=== PATIENT | female | born 1955 | race Caucasian/White ===

== ENCOUNTER 2019-01-27 08:25 | Inpatient (IN) | payer BC ==
[2019-01-27 08:51] VITALS: BMI 19.5
--- NOTE | 2019-01-27 09:48 | HP ---
"CIWA Score Nausea/Vomitin-Int. Nausea w/Dry Heave Muscle Tremors: 4-Moderate,w/Arms Extend Anxiety: 4-Mod. Anxious/Guarded Agitation: 4-Moderately Restless Paroxysmal Sweats: 1-Minimal Palms Moist Orientation: 3-Disoriented Date>2 days Tacttile Disturbances: 0-None Auditory Disturbances: 2-Mild Harshness/Frighten Visual Disturbances: 3-Moderate Sensitivity Headache: 3-Moderate CIWA-Ar Total Score: 28 - Admission Criteria OASAS Guidelines: Admission for Medically Managed Detox: Requires at least one of the followin. CIWA greater than 12 2. Seizures within the past 24 hours 3. Delirium tremens within the past 24 hours 4. Hallucinations within the past 24 hours 5. Acute intervention needed for co occurring medical disorder 6. Acute intervention needed for co occurring psychiatric disorder 7. Severe withdrawal that cannot be handled at a lower level of care (continued vomiting, continued diarrhea, abnormal vital signs) requiring intravenous medication and/or fluids 8. Admission ROS [facility] Allergies/Adverse Reactions: Allergies Allergy/AdvReac Type Severity Reaction Status Date / Time No Known Allergies Allergy Verified 01/27/19 08:44 History of Present Illness: pt here requesting detox from etoh use , reports 1.5 l vodka/day , progressively increased since 5 years ago , latest use Wednesday . denies seizures or blackouts, + tremors pmhx : htn , C-sx x 2 This report was requested by: Hallie Paul | Reference #: [id number] Others' Prescriptions Patient Name: Cindy Marte Date: 1955 Address: [address] [place] [address] Sex: Female Rx Written Rx Dispensed Drug Quantity Days Supply Prescriber Name 11/21/2018 11/21/2018 alprazolam 0.5 mg tablet 30 30 Michael De Dios MD 11/21/2018 11/21/2018 zolpidem tartrate 10 mg tablet 30 30 Michael De Dios MD 04/26/2018 09/02/2018 zolpidem tartrate 10 mg tablet 30 30 Michael De Dios MD 04/26/2018 06/19/2018 zolpidem tartrate 10 mg tablet 30 30 Michael De Dios MD 04/26/2018 04/27/2018 alprazolam 0.5 mg tablet 30 30 Michael De Dios MD 04/26/2018 04/27/2018 zolpidem tartrate 10 mg tablet 30 30 Michael De Dios MD 10/06/2017 03/16/2018 zolpidem tartrate 10 mg tablet 30 30 Michael De Dios MD Exam Limitations: Clinical Condition - Ebola screening Have you traveled outside of the country in the last 21 days: No Have you had contact with anyone from an Ebola affected area: No Do you have a fever: No - Review of Systems Constitutional: Loss of Appetite EENT: reports: No Symptoms Reported Respiratory: reports: No Symptoms reported Cardiac: reports: No Symptoms Reported GI: reports: See HPI : reports: No Symptoms Reported Musculoskeletal: reports: No Symptoms Reported Integumentary: reports: No Symptoms Reported Neuro: reports: See HPI, Headache Endocrine: reports: No Symptoms Reported Psychiatric: reports: Agitated, Anxious, Disorientated Patient History - Smoking Cessation Smoking history: Never smoked - Substances abused Alcohol Substance route: Oral Frequency: Daily Amount used: 1 1/2 liter of vodka Age of first use: 22 Date of last use: 01/25/19 Admission Physical Exam [facility] - Vital Signs Vital Signs: Vital Signs - 24 hr 01/27/19 08:30 Temperature 97.7 F Pulse Rate 71 Respiratory 18 Rate Blood Pressure 154/90 - Physical General Appearance: Yes: Moderate Distress, Tremorous, Anxious HEENTM: Yes: EOMI, Hearing grossly Normal, Normocephalic, Normal Voice Respiratory: Yes: Chest Non-Tender, Lungs Clear, Normal Breath Sounds, No Respiratory Distress, No Accessory Muscle Use Neck: Yes: No masses,lesions,Nodules, Trachea in good position Cardiology: Yes: Regular Rhythm, Regular Rate, S1, S2, Tachycardia Abdominal: Yes: Non Tender, Soft Musculoskeletal: Yes: Gait Steady Extremities: Yes: Normal Range of Motion, Non-Tender, Tremors Neurological: Yes: Alert, Motor Strength 5/5 Integumentary: Yes: Warm - Diagnostic (1) Alcohol withdrawal Current Visit: Yes Status: Acute Qualifiers: Complication of substance-induced condition: uncomplicated Qualified Code(s ): F10.230 - Alcohol dependence with withdrawal, uncomplicated Breathalyzer - Breathalyzer Breathalyzer: 0 Urine Drug Screen - Test Device Lot number: [id number] Expiration date: 10/12/20 - Control Is test valid?: Yes - Results Drug screen NEGATIVE: No Urine drug screen results: THC-Marijuana, BZO-Benzodiazepines Inpatient Rehab Admission - Rehab Decision to Admit Inpatient rehab admission?: No"
[2019-01-27] MEDS ORDERED: MAG HYDROX/AL HYDROX/SIMETH 30 ML UNIT-DOSE CUP PO PRN (10:18)
[2019-01-27] MEDS ORDERED: hydrOXYzine PAMOATE 25 MG CAPSULE (FP) PO PRN (10:18)
[2019-01-27] MEDS ORDERED: MAGNESIUM HYDROX 2400MG/30ML ORAL SUSPENSION 30 ML CUP PO PRN (10:18)
[2019-01-27] MEDS ORDERED: ACETAMINOPHEN 325 MG TABLET (FP) PO PRN ×2 (10:18)
[2019-01-27] MEDS ORDERED: BISMUTH SUBSALICYLATE 524 MG/30 ML UD PO PRN (10:18)
[2019-01-27] MEDS ORDERED: IBUPROFEN 400 MG TABLET (FP) PO PRN (10:18)
[2019-01-27] MEDS ORDERED: MAGNESIUM CITRATE 300 ML BOTTLE PO PRN (10:18)
[2019-01-27] MEDS ORDERED: MENTHOL/PHENOL 1 EACH UD MM PRN (10:18)
[2019-01-27] MEDS ORDERED: chlordiazePOXIDE HCL 25 MG CAPSULE PO PRN (10:20)
[2019-01-27] MEDS: chlordiazePOXIDE HCL 25 MG CAPSULE PO SCH ×3 (11:18→22:10)
[2019-01-27] MEDS: THIAMINE HCL 100 MG TABLET (FP) PO SCH (22:10)
[2019-01-27] MEDS: MELATONIN 5 MG TABLETS PO PRN (22:12)
[2019-01-28] MEDS: chlordiazePOXIDE HCL 25 MG CAPSULE PO SCH ×4 (05:45→22:24)
[2019-01-28] MEDS: PRENATAL VITAMINS W/ FOLIC ACID TABLET (FP) PO SCH (10:14)
[2019-01-28 10:28] LABS: HEMATOCRIT 38.7 % (32.4-45.2); HEMOGLOBIN 13.3 GM/dL (10.7-15.3); MCHC 34.3 g/dl (32.0-36.0); MEAN CELL VOLUME 102.1 fl (80-96); MEAN PLT VOLUME 8.4 fl (7.5-11.1); PLATELET COUNT 147 K/MM3 (134-434); RBC 3.79 M/mm3 (3.60-5.2); WHITE BLOOD COUNT 2.8 K/mm3 (4.0-10.0)
[2019-01-28 10:41] LABS: BILIRUBIN,TOTAL 0.4 mg/dL (0.2-1); BLOOD UREA NITROGEN 12.9 mg/dL (7-18); CALCIUM 9.4 mg/dL (8.5-10.1); CREATININE 0.6 mg/dL (0.55-1.3); POTASSIUM 3.1 mmol/L (3.5-5.1); TOT PROT 7.4 g/dl (6.4-8.2)
--- NOTE | 2019-01-28 16:00 | PN ---
[facility] CIWA - CIWA Score Nausea/Vomitin-No Nausea/No Vomiting Muscle Tremors: 2 Anxiety: 3 Agitation: 3 Paroxysmal Sweats: No Perspiration Orientation: 0-Oriented Tacttile Disturbances: 0-None Auditory Disturbances: 2-Mild Harshness/Frighten Visual Disturbances: 3-Moderate Sensitivity Headache: 0-None Present CIWA-Ar Total Score: 13 S Progress Note (SOAP) Subjective: Anxious, Fatigue, Interrupted Sleep. Objective: PATIENT A & O X 3, OBSERVED AMBULATING ON DETOX UNIT UNASSISTED. IN NO ACUTE DISTRESS. 01/28/19 15:56 Vital Signs Temperature 99.0 F 01/28/19 14:52 Pulse Rate 80 01/28/19 14:52 Respiratory Rate 18 01/28/19 14:52 Blood Pressure 135/89 01/28/19 14:52 O2 Sat by Pulse Oximetry (%) Laboratory Tests 01/28/19 01/28/19 01/28/19 07:55 07:55 07:55 WBC 2.8 L RBC 3.79 Hgb 13.3 Hct 38.7 MCV 102.1 H MCH 35.0 H MCHC 34.3 RDW 12.0 Plt Count 147 MPV 8.4 Sodium 137 Potassium 3.1 L Chloride 98 Carbon Dioxide 31 Anion Gap 9 BUN 12.9 Creatinine 0.6 Est GFR (CKD-EPI)AfAm 114.02 Est GFR (CKD-EPI)NonAf 98.38 Random Glucose 94 Calcium 9.4 Total Bilirubin 0.4 AST 59 H ALT 40 Alkaline Phosphatase 94 Total Protein 7.4 Albumin 4.0 RPR Titer Nonreactive LABS NOTED. Assessment: 01/28/19 15:57 WITHDRAWAL SYMPTOMS. LEUKOPENIA. HYPOKALEMIA. ELEVATED AST LEVEL. 01/28/19 15:58 Plan: CONTINUE DETOX. INCREASE DAILY ORAL WATER INTAKE. K-DUR, 20 MEQ ORALLY BID. RE-CHECK K LEVEL ON 01/30/2019.
[2019-01-28] MEDS: POTASSIUM CHLORIDE TABS 20 MEQ TABLET.ER (FP) PO SCH (17:14)
[2019-01-28] MEDS: THIAMINE HCL 100 MG TABLET (FP) PO SCH (22:24)
[2019-01-28] MEDS: MELATONIN 5 MG TABLETS PO PRN (22:25)
[2019-01-29] MEDS: chlordiazePOXIDE HCL 25 MG CAPSULE PO SCH ×4 (05:28→22:23)
[2019-01-29] MEDS: PRENATAL VITAMINS W/ FOLIC ACID TABLET (FP) PO SCH (10:18)
[2019-01-29] MEDS: POTASSIUM CHLORIDE TABS 20 MEQ TABLET.ER (FP) PO SCH ×2 (10:18→18:11)
--- NOTE | 2019-01-29 15:36 | PN ---
[facility] CIWA - CIWA Score Nausea/Vomitin-Mild Nausea/No Vomiting Muscle Tremors: 3 Anxiety: 4-Mod. Anxious/Guarded Agitation: 3 Paroxysmal Sweats: 3 Orientation: 0-Oriented Tacttile Disturbances: 0-None Auditory Disturbances: 0-None Visual Disturbances: 0-None Headache: 0-None Present CIWA-Ar Total Score: 14 S Progress Note (SOAP) Subjective: Sweating, medication helpful Objective: 01/29/19 15:32 Last Vital Signs Temp Pulse Resp BP Pulse Ox 99 F 85 16 119/72 01/29/19 11:22 01/29/19 11:22 01/29/19 11:22 01/29/19 11:22 Laboratory Tests 01/28/19 01/28/19 01/28/19 07:55 07:55 07:55 WBC 2.8 L RBC 3.79 Hgb 13.3 Hct 38.7 MCV 102.1 H MCH 35.0 H MCHC 34.3 RDW 12.0 Plt Count 147 MPV 8.4 Sodium 137 Potassium 3.1 L Chloride 98 Carbon Dioxide 31 Anion Gap 9 BUN 12.9 Creatinine 0.6 Est GFR (CKD-EPI)AfAm 114.02 Est GFR (CKD-EPI)NonAf 98.38 Random Glucose 94 Calcium 9.4 Total Bilirubin 0.4 AST 59 H ALT 40 Alkaline Phosphatase 94 Total Protein 7.4 Albumin 4.0 RPR Titer Nonreactive Labs reviewed: K 3.1 (low), AST 59 (mildly elevated) Assessment: 01/29/19 15:34 Withdrawal sxs Noted with hypokalemia and transaminitis Plan: Continue detox Encouraged PO water hydration Hypokalemia: replenished, recheck serum K level in AM Transaminitis: most likely due to alcoholism, repeat AST in AM
[2019-01-29] MEDS: MELATONIN 5 MG TABLETS PO PRN (22:23)
[2019-01-29] MEDS: THIAMINE HCL 100 MG TABLET (FP) PO SCH (22:23)
[2019-01-30] MEDS ORDERED: chlordiazePOXIDE HCL 10 MG CAPSULE PO PRN
[2019-01-30] MEDS: chlordiazePOXIDE HCL 10 MG CAPSULE PO SCH ×4 (06:08→22:30)
[2019-01-30] MEDS: PRENATAL VITAMINS W/ FOLIC ACID TABLET (FP) PO SCH (10:11)
[2019-01-30] MEDS: POTASSIUM CHLORIDE TABS 20 MEQ TABLET.ER (FP) PO SCH (10:12)
[2019-01-30 12:06] LABS: POTASSIUM 3.7 mmol/L (3.5-5.1)
--- NOTE | 2019-01-30 12:24 | PN ---
[facility] CIWA - CIWA Score Nausea/Vomitin-No Nausea/No Vomiting Muscle Tremors: 3 Anxiety: 2 Agitation: 3 Paroxysmal Sweats: 2 Orientation: 0-Oriented Tacttile Disturbances: 0-None Auditory Disturbances: 0-None Visual Disturbances: 0-None Headache: 0-None Present CIWA-Ar Total Score: 10 BHS Progress Note (SOAP) Subjective: sweats shakes anxiety Objective: 01/30/19 12:22 Vital Signs Temperature 97.7 F 01/30/19 09:30 Pulse Rate 78 01/30/19 09:30 Respiratory Rate 16 01/30/19 09:30 Blood Pressure 118/87 01/30/19 09:30 O2 Sat by Pulse Oximetry (%) Laboratory Tests 01/28/19 01/28/19 01/28/19 07:55 07:55 07:55 WBC 2.8 L RBC 3.79 Hgb 13.3 Hct 38.7 MCV 102.1 H MCH 35.0 H MCHC 34.3 RDW 12.0 Plt Count 147 MPV 8.4 Sodium 137 Potassium 3.1 L Chloride 98 Carbon Dioxide 31 Anion Gap 9 BUN 12.9 Creatinine 0.6 Est GFR (CKD-EPI)AfAm 114.02 Est GFR (CKD-EPI)NonAf 98.38 Random Glucose 94 Calcium 9.4 Total Bilirubin 0.4 AST 59 H ALT 40 Alkaline Phosphatase 94 Total Protein 7.4 Albumin 4.0 RPR Titer Nonreactive 01/30/19 08:15 WBC RBC Hgb Hct MCV MCH MCHC RDW Plt Count MPV Sodium Potassium 3.7 Chloride Carbon Dioxide Anion Gap BUN Creatinine Est GFR (CKD-EPI)AfAm Est GFR (CKD-EPI)NonAf Random Glucose Calcium Total Bilirubin AST 41 H ALT Alkaline Phosphatase Total Protein Albumin RPR Titer repeated labs show improvement on potassium and ast liver enzymes aaox3 ambulating no acute distress Assessment: 01/30/19 12:23 withdrawals Plan: continue detox d/c potassium increase fluids
[2019-01-30] MEDS: MELATONIN 5 MG TABLETS PO PRN (22:30)
[2019-01-30] MEDS: THIAMINE HCL 100 MG TABLET (FP) PO SCH (22:30)
[2019-01-31] MEDS ORDERED: chlordiazePOXIDE HCL 10 MG CAPSULE PO SCH (05:00)
[2019-01-31 06:40] VITALS: BP 123/81; PULSE 83; TEMP 97.9
--- NOTE | 2019-01-31 09:58 | DS ---
[facility] Detox Discharge Summary Admission Date: 01/27/19 Discharge Date: 01/31/19 - History Present History: Alcohol Dependence - Physical Exam Results Vital Signs: Vital Signs Temperature 97.9 F 01/31/19 06:39 Pulse Rate 83 01/31/19 06:39 Respiratory Rate 18 01/31/19 06:39 Blood Pressure 123/81 01/31/19 06:39 O2 Sat by Pulse Oximetry (%) Pertinent Admission Physical Exam Findings: pt arrived in withdrawals Vital Signs Temperature 97.9 F 01/31/19 06:39 Pulse Rate 83 01/31/19 06:39 Respiratory Rate 18 01/31/19 06:39 Blood Pressure 123/81 01/31/19 06:39 O2 Sat by Pulse Oximetry (%) Laboratory Tests 01/28/19 01/28/19 01/28/19 07:55 07:55 07:55 WBC 2.8 L RBC 3.79 Hgb 13.3 Hct 38.7 MCV 102.1 H MCH 35.0 H MCHC 34.3 RDW 12.0 Plt Count 147 MPV 8.4 Sodium 137 Potassium 3.1 L Chloride 98 Carbon Dioxide 31 Anion Gap 9 BUN 12.9 Creatinine 0.6 Est GFR (CKD-EPI)AfAm 114.02 Est GFR (CKD-EPI)NonAf 98.38 Random Glucose 94 Calcium 9.4 Total Bilirubin 0.4 AST 59 H ALT 40 Alkaline Phosphatase 94 Total Protein 7.4 Albumin 4.0 RPR Titer Nonreactive 01/30/19 08:15 WBC RBC Hgb Hct MCV MCH MCHC RDW Plt Count MPV Sodium Potassium 3.7 Chloride Carbon Dioxide Anion Gap BUN Creatinine Est GFR (CKD-EPI)AfAm Est GFR (CKD-EPI)NonAf Random Glucose Calcium Total Bilirubin AST 41 H ALT Alkaline Phosphatase Total Protein Albumin RPR Titer pt is aaox3 ambulating no acute distress no s/s of withdrawals - Treatment Hospital Course: Detox Protocol Followed, Detoxed Safely, Responded well, Discharged Condition Good, Rehab Referral Accepted Patient has Accepted a Rehab Referral to: pt is going to [facility] - Medication Discharge Medications: Ambulatory Orders Propranolol HCl [Propranolol HCl ER] 60 mg PO DAILY 01/27/19 - Diagnosis (1) Alcohol withdrawal Current Visit: Yes Status: Chronic Qualifiers: Complication of substance-induced condition: uncomplicated Qualified Code(s ): F10.230 - Alcohol dependence with withdrawal, uncomplicated (2) Elevated aspartate aminotransferase level Current Visit: Yes Status: Acute (3) Hypokalemia Current Visit: Yes Status: Acute - AMA Did Patient Leave Against Medical Advice: No
[2019-02-01] MEDS ORDERED: chlordiazePOXIDE HCL 10 MG CAPSULE PO ONE (05:00)
== END 2019-01-31 09:09 | disposition home or self-care (01) | DRG 897 ==
LOC: YASAS 08:25 → Y6N 10:34
PROVIDERS: ADMIT Allergy & Immunology; ATTEND Allergy & Immunology
PROC: HZ2ZZZZ Detoxification Services for Substance Abuse Treatment (ICD-10-PCS; principal; 2019-01-27)
DX: F10.230 Alcohol dependence with withdrawal, uncomplicated (principal); E87.6 Hypokalemia; R74.0 Nonspecific elevation of levels of transaminase and lactic acid dehydrogenase [LDH]; D72.819 Decreased white blood cell count, unspecified
CPT/HCPCS: 36415; 80053; 84132; 84450; 85027; 86593